=== PATIENT | female | born 1950 | race Caucasian/White ===

== ENCOUNTER 2024-06-06 14:41 | Outpatient (REF) | payer MEDICARE, SELFPAY ==
[2024-06-06 16:38] LABS: MANUAL DIFF FLAG NO
[2024-06-06 16:54] LABS: Basophils Percent Auto 0.7 % (0-2); Eosinophils Absolute Auto 0.1 X10*3/uL (0.0-0.4); Hematocrit 39.2 % (37.0-47.0); Hemoglobin 12.8 g/dl (12.0-16.0); Imm Gran Abs Auto 0.01 X10*3/uL (0.00-0.03); Imm Gran Pct Auto 0.2 % (0.0-0.4); Lymphocytes Absolute Auto 1.9 X10*3/uL (1.2-4.9); Lymphocytes Percent Auto 31.3 % (20-40); Mean Corpuscular HGB Conc 32.7 g/dl (31.0-35.0); Mean Corpuscular Hemoglobin 29.4 pg (27.0-33.0); Mean Corpuscular Volume 90.1 fL (80.0-98.0); Mean Platelet Volume 11.1 fL (9.4-12.3); Monocytes Absolute Auto 0.5 X10*3/uL (0.1-1.2); Monocytes Percent Auto 8.7 % (2-11); Neutrophils Absolute Auto 3.5 x10*3/uL (2.0-8.3); Neutrophils Percent Auto 58.1 % (45-73); Platelet Count 334 X10*3/uL (160-400); Red Blood Count 4.35 X10*6/uL (4.20-5.50); Red Cell Distribution Width 12.4 % (11.0-16.0)
[2024-06-06 17:05] LABS: Estimated Average Glucose 111 mg/dL; Hemoglobin A1c % 5.5 % (<6.0)
[2024-06-06 17:23] LABS: Alanine Aminotransferase 15 U/L (0-31); Alkaline Phosphatase 87 U/L (39-117); Anion Gap 13 (12-20); Aspartate Amino Transferase 23 U/L (5-31); Bilirubin Total 0.2 mg/dL (0.0-1.0); Blood Urea Nitrogen 20 mg/dL (9-16); Carbon Dioxide 29 mmol/L (22-29); Chloride 102 mmol/L (96-108); Cholesterol 188 mg/dL (<200); Estimated Glomerular Filt Rate > 60; Glucose Random 102 mg/dL (60-115); HDL Cholesterol 59 mg/dL (>40); LDL Cholesterol Calculated 106 mg/dL (<100); Potassium 3.8 mmol/L (3.3-5.1); Sodium 140 mmol/L (135-145); Total Protein 7.7 g/dL (6.5-8.0); Triglycerides 117 mg/dL (<150)
[2024-06-06 17:40] LABS: TSH reflex Free T4 1.36 uIU/mL (0.32-4.0); Vitamin D 25-OH Total 47.6 ng/mL (>30)
== END 2024-06-06 14:42 | disposition home or self-care (01) ==
LOC: HO.HHCL 14:41
PROVIDERS: Visit Provider Internal Medicine
DX: I10 Essential (primary) hypertension (principal); Z13.1 Encounter for screening for diabetes mellitus
CPT/HCPCS: 36415; 80053; 80061; 82306; 83036; 84443; 85025

== ENCOUNTER 2024-06-22 11:03 | Outpatient (REF) | payer OTHER, SELFPAY ==
--- NOTE | ~2024-06-22 | MM_ITS ---
EXAMINATION: MM SCREENING DIGITAL BREAST TOMOSYNTHESIS, BILATERAL CLINICAL INFORMATION: Screening. Asymptomatic. COMPARISON: Mammography: Comparison is made with available priors TECHNIQUE: Digital breast mammography with tomosynthesis is performed in both the craniocaudal and mediolateral oblique views along with computer-aided detection (CAD). FINDINGS: There are scattered areas of fibroglandular density (ACR BI-RADS breast composition Category b). There are no significant masses, abnormal calcifications, or other abnormalities. MM/MM tomosynthesis screening BI IMPRESSION: No mammographic evidence of malignancy. ASSESSMENT: BI-RADS BI-RADS 1 - Negative RECOMMENDATION: Routine annual mammography screening. 1 year F/U This examination should not preclude the clinical evaluation of a suspicious palpable abnormality. This patient's information was entered into a reminder system with a target due date for their next mammogram. Electronically signed by: Loretta Ferguson DO 07/04/2024 05:28 PM EDT
== END 2024-06-22 11:04 | disposition home or self-care (01) ==
LOC: HO.MAMMO 11:03
PROVIDERS: Visit Provider Internal Medicine
DX: Z12.31 Encounter for screening mammogram for malignant neoplasm of breast (principal)
CPT/HCPCS: 77063; 77067

== ENCOUNTER → 2024-06-22 11:30 | Outpatient (BNV) | payer OTHER, SELFPAY | PROVIDERS: Visit Provider Internal Medicine | DX: Z12.31 Encounter for screening mammogram for malignant neoplasm of breast (principal) | CPT/HCPCS: 77063; 77067 ==

== ENCOUNTER 2025-07-20 13:27 | Outpatient (REF) | payer MEDICARE, SELFPAY ==
--- OUTSIDE RECORDS SUMMARY | 2025-07-20 16:45 | XMS_ITS | Clinical Summary ---
Author Organization [employer] Address [address] [facility] 7[address] [place] [address] Care Team Providers Care System Administrator Name Role Phone Madyson Aggarwal MD Primary Care Provide r Allergies Active Allergy Reactions Criticality Noted Date Comments Amlodipine 07/07/2019 Leg edema Medications lisinopril 10 MG tabletIndications :Primary hypertension TAKE 1 TABLET(10 MG) BY MOUTH DAILY 90 tablet 5 Active triamterene-hydro CHLOROthiazide (Dyazide) 37.5-25 MG capsuleIndication s:Primary hypertension Take 1 capsule by mouth in the morning. 90 capsule 2 5 06/16/20 26 Active alendronate (Fosamax) 70 MG tabletIndications :Age-related osteoporosis without current pathological fracture Take 1 tablet (70 mg) by mouth every 7 (seven) days. Take in the morning with a full glass of water, on an empty stomach, and do not take anything else by mouth or lie down for the next 30 min. 12 tablet 1 5 Active levothyroxine (Synthroid) 50 MCG tabletIndications :Hypothyroidism (acquired) Take 1 tablet (50 mcg) by mouth before breakfast. 90 tablet 2 5 06/16/20 26 Active Active Problems Problem Noted Date Diagnosed Date Symptom of neuropathy 06/16/2025 Assessment & Plan (06/16/2025 11:26 AM EDT): Neuropathy symptoms present in hands and feet, not currently bothersome. No carpal tunnel syndrome diagnosed. - Monitor symptoms. If symptoms worsen, notify provider. Encounter for screening mamm ogram for malignant neoplasm of breast 06/06/2024 Primary hypertension 06/06/2024 Assessment & Plan (06/16/2025 11:24 AM EDT): Hypertension is well controlled. - Changed prescription to provide antihypertensive medication (Diazide) for 90 days. Continue current regimen. Next follow-up scheduled in 3 months. Assessment & Plan (06/06/2024 4:58 PM EDT): Maintenance: BMP: ordered Lipid Panel: ordered ASCVD Risk: Calculate pending updated labs - Aerobic exercise to reduce BP. Initial goal of 30 min walk 3-5x/week. Increase as tolerated. - low-sodium diet (goal: <2g/day) and heart healthy diet such as DASH to reduce BP and prevent ASCVD. - Home BP monitoring 1-2 x day with goal of <140/90. - Seek immediate medical attention for chest pain, palpitations, SOB, syncope, or sudden changes in mental status. - Do not change or discontinue current prescriptions without first consulting health care provider Hypothyroidism (acquired) 06/06/2024 Assessment & Plan (06/16/2025 11:25 AM EDT): Hypothyroidism stable. - Changed prescription to provide levothyroxine for 90 days. Continue current regimen. Next follow-up scheduled in 3 months. Assessment & Plan (06/06/2024 4:58 PM EDT): TSH will be check with labs Age-related osteoporosis wit hout current pathological fracture 06/06/2024 Assessment & Plan (06/16/2025 11:25 AM EDT): Osteoporosis stable, no current pathological fracture. - Changed prescription to provide Nedronate for 90 days. Continue current regimen. Next follow-up scheduled in 3 months. Vitamin D deficiency 06/01/2018 HTN (hypertension) 08/19/2010 Hypothyroidism 08/25/2007 Osteoporosis 08/13/2006 Overview (05/29/2025): PEDROO update Encounters Date Type Department Care Team Description 06/30/2025 Telephone [facility] [address] [place] [phone] Madyson Aggarwal MD francis recalls 06/16/2025 10:45 AM EDT Office Visit [address] [phone] Madyson Aggarwal MD Symptom of neuropathy (Primary Dx); Primary hypertension; Age-related osteoporosis without current pathological fracture; Hypothyroidism (acquired); Encounter for immunization 06/16/2025 Travel 06/15/[address] [phone] Madyson Aggarwal MD Chart Prep 06/09/2025 Travel 06/08/[address] [phone] Madyson Aggarwal MD Age-related osteoporosis without current pathological fracture 06/08/2025 Patient Outreach [address] [address] Madyson Aggarwal MD Pre-visit Planning (SDOH screening negative and tobacco screening negative) 06/06/2025 Refill [facility] [address] [place] [phone] Madyson Aggarwal MD Age-related osteoporosis without current pathological fracture 06/05/[address] [address] Madyson Aggarwal MD Appointment 06/01/[address] [phone] Madyson Aggarwal MD Appointment Request 05/30/2025 Telephone [facility] [address] [place] [phone] Madyson Aggarwal MD No Show 05/29/[address] [address] Madyson Aggarwal MD Chart Prep 05/29/[address] [address] Madyson Aggarwal MD Insurance 05/29/2025 Refill [facility] [address] [place] [address] Madyson Aggarwal MD Primary hypertension from Last 3 Months Immunizations Immunization Administration Dates Next Due Influenza Injectable Quadriv alant Preservative Free IIV4 MDCK 07/10/2021 Influenza, High Dose Seasona l, Preservative Free 06/16/2025,06/06/2024,06/23/2023,06/03,05/22/2020,05/22/2020,05/24/2019 ,06/01/2018,08/06/2017,05/20/2016 Influenza, IIV3, injectable 09/04/2014,0 05/10/2013,08/03/2012,06/10,08/25/2007 Influenza, Unspecified 08/06/2017 Influenza, seasonal, injecta ble, preservative free 09/04/2014,05/10/2013,08/03/2012,06/10,08/25/2007 Influenza, trivalent, adjuvanted 023,06/03/2022,05/22/2020,05/24,06/01/2018,08/06/2017,05/20/2016 Pfizer Covid-19 Vaccine 12+ 06/06/2024 Pneumococcal Conjugate PCV 13 02/14/2019 Pneumococcal Polysaccharide PPSV23 09/04/2014 Tdap 05/02/2009 Social History Tobacco Use Types Packs/Day Years Used Date Smoking Tobacco: Never Passive Smoke Exposure: Never Smokeless Tobacco: Never Tobacco Cessation:Counseling Given: Not Answered Alcohol Use Standard Drinks/Week Comments Never 0 (1 standard drink = 0.6 oz pur e alcohol) Depression Answer Date Recorded Patient Health Questionnaire-9 Score 0 06/16/2025 Patient Health Questionnaire-9 Score 0 06/16/2025 Last PHQ-9: Questionnaire Data Not on file 1 Housing Stability Answer Date Recorded What is your housing situation today? I have coy gilliland 06/08/[address] you li ve. Do you have problems with any of the following? None of the above 06/08/2025 Food Insecurity Answer Date Recorded Within the past 12 months, y ou worried that your food would run out before you got money to buy more: Never True 06/08/2025 Within the past 12 months,th e food you bought just didn't last and you didn't have enough money to get more: Never True 10/2024 Transportation Answer Date Recorded In the past 12 months, has l ack of transportation kept you from medical appts, meetings, work or from getting things needed for daily living? No 06/08/2025 Utilities Answer Date Recorded In the past 12 months, has t he electric, gas, oil or water company threatened to shut off services in your home? No 06/08/2025 Depression Answer Date Recorded Patient Health Questionnaire-2 Score 0 06/16/2025 Internet Access Answer Date Recorded Internet Access Q1 Yes 06/08/2025 Internet Access Q2 Not on file 06/08/2025 Comments Unknown Sex and Gender Information Value Date Recorded Sex Assigned at Female 07/07/2022 10:37 AM EDT Legal Sex Female 10:37 AM EDT Gender Identity Female 07/07/2022 10:37 AM EDT Sexual Orientation Straight 07/07/2022 10 :37 AM EDT Last Filed Vital Signs Vital Sign Reading Time Taken Comments Blood Pressure 132/64 06/16/2025 10:43 AM EDT Pulse 84 06/16/2025 10:43 AM EDT Temperature 36.1 C (97 F) 06/16/2025 10:43 AM EDT Respiratory Rate 16 06/16/2025 10:43 AM EDT Oxygen Saturation 98% 06/06/2024 12:58 PM EDT Inhaled Oxygen Concentration - - Weight 58.1 kg (128 lb) 06/16/2025 10:43 AM EDT Height 156.2 cm (5' 1.5 ) 06/16/2025 10:43 AM ED T Body Mass Index 23.79 06/16/2025 10:43 AM EDT Plan of Treatment Upcoming Encounters Date Type Department Care Team (Late st Contact Info) Description 09/18/2025 10:00 AM EST Office Visit [facility] [address] [place] [address] Madyson Aggarwal MD [address] [place] [address] Health Maintenance Due Date Last Done Comments Hepatitis C Screening 1968 Zoster Vaccines (1 of 2) 1999 DTaP/Tdap/Td Vaccines (2 - Td or Tdap) 05/02/2019 05/02/2009 RSV Patients and Patients Aged 60 years or older (1 - 1-dose 75+ series) 2024 COVID-19 Vaccine (6 - season) 2025 06/06/2024, 04/07/2022, 09/10/2021, Additional history exists SDOH Screening 06/08/2026 06/08/2025 Alcohol/Substance Use Screening 06/16/2026 06/16/2025 Depression Screening 06/16/2026 06/16/2025, 06/16/20 Tobacco Screening 06/16/2026 06/16/2025 Lipid Panel 06/06/2029 06/06/2024 Pneumococcal Vaccine: 50+ Years Completed 02/14/2019, 09/04/2014 Influenza Vaccine Completed 06/16/2025, , 06/23/2023, Additional history exists HIB Vaccines Aged Out No longer eligi ble based on patient's age to complete this topic HPV Vaccines Aged Out No longer eligi ble based on patient's age to complete this topic Hepatitis A Vaccines Aged Out No long er eligible based on patient's age to complete this topic Hepatitis B Vaccines Aged Out No long er eligible based on patient's age to complete this topic IPV Vaccines Aged Out No longer eligi ble based on patient's age to complete this topic Meningococcal B Vaccine Aged Out No l onger eligible based on patient's age to complete this topic Meningococcal Vaccine Aged Out No chuck nelly eligible based on patient's age to complete this topic RSV under 20 months Aged Out No longe r eligible based on patient's age to complete this topic Rotavirus Vaccines Aged Out No longer eligible based on patient's age to complete this topic Procedures Procedure Name Priority Date/Time Associated Diagnosis Comments LIPID PANEL, STANDARD Routine 06/06/2024 2:47 PM EDT Primary hypertension from Last 3 Months or Most Recently Relevant to Health Maintenance Results * (ABNORMAL) Lipid Panel, Standard (06/06/2024 2:47 PM EDT) Triglycerides 117 <150 mg/dL [facility] Comment:Desirable Triglyceri de: less than 150 mg/dLBorderline High Triglyceride 150-199 mg/dLHigh Triglyceride: 200-499 mg/dLVery High Triglyceride: greater than or equal to 5OO mg/dL Cholesterol 188 <200 mg/dL [facility] Comment:Desirable Cholestero l: less than 200 mg/dLBorderline High Cholesterol: 200-239 mg/dLHigh Cholesterol: greater than 239 mg/dL LDL Cholesterol Calculated 106(H) <100 mg/dL [facility] Comment:Desirable LDL: less than 100 mg/dLNear Optimal/Above Optimal LDL: 110- 129 mg/dLBorderline High LDL: 130-159 mg/dLHigh LDL: 160-189 mg/dLVery High LDL: greater than or equal to 190 mg/dL HDL Cholesterol 59 >40 mg/dL [facility] Comment:Desirable HDL: great er than 40 mg/dL Note: This HDL assay may give artificially low results in patients with liver disease. Blood Venous blood specimen / Unknown 06/06/2024 2:47 PM EDT 06/06/2024 4:37 PM EDT Madyson Rodgers MD LAB BLOOD ORDERABLES Final Result [facility] [address] [place] [phone] [phone] from Last 3 Months or Most Recently Relevant to Health Maintenance [place] [address] [place] [address] MEDICARE ADVANTAGE HMO Care Teams System Administrator Relationship Specialty Start Date End Date Madyson Aggarwal MD [address] [place] [address] PCP - General Internal Medicine 06/06/24
--- OUTSIDE RECORDS SUMMARY | 2025-07-20 16:45 | XMS_ITS | Encounter Summary ---
Author Organization [employer] Address [address] [facility] 7[address] [place] [address] Care Team Providers Care Header Machine Operator Name Role Phone Madyson Aggarwal MD Primary Care Provide r Reason for Visit * Reason Comments Med Refill Encounter Details Date Type Department Care Team ([facility] Contact Info) Description 06/08/2025 Refill [facility] [address] [place] [address] Madyson Aggarwal MD [address] [place] [address] Age-related osteoporosis without current pathological fracture Social History Tobacco Use Types Packs/Day Years Used Date Smoking Tobacco: Never Passive Smoke Exposure: Never Smokeless Tobacco: Never Alcohol Use Standard Drinks/Week Comments Never 0 (1 standard drink = 0.6 oz pur e alcohol) Depression Answer Date Recorded Patient Health Questionnaire-9 Score 0 06/06/2024 Patient Health Questionnaire-9 Score 0 06/06/2024 Last PHQ-9: Questionnaire Data Not on file 0 06/06/2024 Housing Stability Answer Date Recorded What is your housing situation today? I have coysimran gilliland 06/08/[address] you [...] Date Recorded Patient Health Questionnaire-2 Score 0 06/06/2024 Internet Access Answer Date Recorded Internet Access Q1 Yes 06/08/2025 Internet Access Q2 Not on file 06/08/2025 Comments Unknown Sex and Gender Information Value Date Recorded Sex Assigned at Female 07/07/2022 10:37 AM EDT Legal Sex Female 10:37 AM EDT Gender Identity Female 07/07/2022 10:37 AM EDT Sexual Orientation Straight 07/07/2022 10 :37 AM EDT documented as of this encounter Plan of Treatment Upcoming Encounters Date Type Department Care Team (Late st Contact Info) Description 09/18/2025 10:00 AM EST Office Visit [facility] [address] [place] [phone] Madyson Aggarwal MD [address] [place] [address] documented as of this encounter Visit Diagnoses Diagnosis Age-related osteoporosis without current pathological fracture documented in this encounter Additional Health Concerns Assessment Noted Time PHQ-9 Depression Total Score: 0 06/06/20 24 12:59 PM EDT documented as of this encounter Care Teams Header Machine Operator Relationship Specialty Start Date End Date Madyson Aggarwal MD [address] [place] [phone] PCP - General Internal Medicine 06/06/24 documented as of this encounter
== END 2025-07-20 13:28 | disposition home or self-care (01) ==
LOC: HO.MAMMO 13:27
PROVIDERS: PCP Internal Medicine; Visit Provider Internal Medicine
DX: Z12.31 Encounter for screening mammogram for malignant neoplasm of breast (principal)
CPT/HCPCS: 77063; 77067

== ENCOUNTER → 2025-07-20 13:30 | Outpatient (BNV) | payer MEDICARE, SELFPAY | PROVIDERS: PCP Internal Medicine; Visit Provider Internal Medicine | DX: Z12.31 Encounter for screening mammogram for malignant neoplasm of breast (principal) | CPT/HCPCS: 77063; 77067 ==